=== PATIENT | male | born 1985 | race Caucasian/White ===

== ENCOUNTER 2017-04-23 23:30 | Emergency (ER) | payer MEDICARE, MEDICAID ==
[2017-04-23] MEDS ORDERED: ALPRAZolam 0.5 MG Tab PO ONE (23:53)
--- NOTE | 2017-04-23 23:54 | EDM.PDOC ---
ED HPI GENERAL MEDICAL PROBLEM - General Chief Complaint: Behavioral/Psych Stated Complaint: ANXIETY ATTACK Time Seen by Provider: 04/23/17 23:45 Source of Information: Reports: Patient History Limitations: Reports: No Limitations - History of Present Illness INITIAL COMMENTS - FREE TEXT/NARRATIVE: HISTORY AND PHYSICAL: History of present illness: [31-year-old male with a history of anxiety now complaining of insomnia. Patient states he's feeling stressed out and when he lays down in bed he can hear all the sounds around him and he can't relax so he can sleep. He denies feeling depressed or suicidal. Patient denies new stressors in his life. He has no history of depression and is never been formally diagnosed with anxiety however he is does have a history getting anxious. He is never tried any medicines for sleep no recent illness or other complaints Review of systems: As per history of present illness and below otherwise all systems reviewed and negative. Past medical history: As per history of present illness and as reviewed below otherwise noncontributory. Surgical history: As per history of present illness and as reviewed below otherwise noncontributory. Social history: No reported history of drug or alcohol abuse. Family history: As per history of present illness and as reviewed below otherwise noncontributory. Physical exam: Patient alert communicative cooperative and appropriate however he is mildly anxious especially when discussing his insomnia HEENT: Atraumatic, normocephalic, pupils reactive, negative for conjunctival pallor or scleral icterus, mucous membranes moist, throat clear, neck supple, nontender, trachea midline. Lungs: Clear to auscultation, breath sounds equal bilaterally, chest nontender. Heart: S1S2, regular, negative for clicks, rubs, or JVD. Abdomen: Soft, nondistended, nontender. Negative for masses or hepatosplenomegaly. Negative for costovertebral tenderness. Pelvis: Stable nontender. Genitourinary: Deferred. Rectal: Deferred. Extremities: Atraumatic, negative for cords or calf pain. Neurovascular unremarkable. Neuro: Awake, alert, oriented. Cranial nerves II through XII unremarkable. Cerebellum unremarkable. Motor and sensory unremarkable throughout. Exam nonfocal. Diagnostics: [] Therapeutics: [] Impression: [] Plan: [Signs and symptoms consistent with anxiety and insomnia in a patient with no evidence of psychiatric emergency unremarkable vital signs are normal exam. Discussed with patient I think he may benefit from an anxiolytic. Dose of Xanax given in ED. Patient aware to possibly try Benadryl for help with sleep and then follow-up with his primary care doctor for reevaluation and to discuss what might be optimally beneficial for his duration. Definitive disposition and diagnosis as appropriate pending reevaluation and review of above. - Related Data Allergies Allergy/AdvReac Type Severity Reaction Status Date / Time Penicillins Allergy Hives Verified 04/23/17 23:42 Home Meds: Home Meds . [No Known Home Meds] 04/23/17 [History] Past Medical History - Past Health History Medical/Surgical History: Denies Medical/Surgical History - Infectious Disease History Infectious Disease History: Reports: Chicken Pox Social & Family History - Family History Family Medical History: Noncontributory - Tobacco Use Smoking Status *Q: Never Smoker - Caffeine Use Caffeine Use: Reports: None - Recreational Drug Use Recreational Drug Use: No ED ROS GENERAL - Review of Systems Review Of Systems: See Below (History of present illness) ED EXAM, GENERAL - Physical Exam Exam: See Below (History of present illness) Course - Vital Signs Last Recorded V/S: Last Vital Signs Temp 36.5 C 04/24/17 00:22 Pulse 87 04/24/17 00:22 Resp 17 04/24/17 00:22 BP 137/86 04/24/17 00:22 Pulse Ox 95 04/24/17 00:22 - Orders/Labs/Meds Meds: Medications Discontinued Medications Generic Name Dose Route Start Last Admin Trade Name Ronq PRN Reason Stop Dose Admin Alprazolam 1 mg 04/23/17 23:53 04/24/17 00:14 Xanax PO 04/23/17 23:54 1 mg NOW ONE Administration Departure - Departure Time of Disposition: 23:51 Disposition: Home, Self-Care 01 Condition: good Clinical Impression: Anxiety, Insomnia - Discharge Information Instructions: Panic Attacks, Insomnia Referrals: PCP,None [Primary Care Provider] - Forms: ED Department Discharge Additional Instructions: You're suffering from anxiety tonight with insomnia or inability to sleep. Your physical exam is completely normal and there does not appear to be any physical problem why he should not be able to sleep. We've given you a dose of Xanax to help you relax this evening. Use [id number] Benadryl at bedtime as needed to assist with sleep and follow-up with your doctor in one to 2 days for reevaluation and to discuss what indications for further therapy in the future might be.
[2017-04-24 00:24] VITALS: BP 137/86
== END 2017-04-24 00:37 | disposition home or self-care (01) ==
LOC: MW.ED 23:30
DX: F41.9 Anxiety disorder, unspecified (principal); Z88.0 Allergy status to penicillin
CPT/HCPCS: 99283; A9270; 99282

== ENCOUNTER 2019-01-18 09:12 | Emergency (ER) | payer MEDICARE, MEDICAID ==
[2019-01-18 09:25] VITALS: BP 125/87
[2019-01-18] MEDS ORDERED: Sodium Chloride 0.9% 2.5 ML Syringe FLUSH PRN (09:42)
[2019-01-18] MEDS ORDERED: Sodium Chloride 0.9% 10 ML Syringe FLUSH PRN (09:42)
--- NOTE | 2019-01-18 09:42 | EDM.PDOC ---
ED HPI GENERAL MEDICAL PROBLEM - General Chief Complaint: Chest Pain Stated Complaint: SPOKE TO NURSE Time Seen by Provider: 01/18/19 09:20 Source of Information: Reports: Patient History Limitations: Reports: No Limitations - History of Present Illness INITIAL COMMENTS - FREE TEXT/NARRATIVE: History of present illness: []Patient was seen this morning in [place] with a positive CK-MB and an abnormal EKG and was told he needed to go to [place]. He refused transfer and admission there and signed out AMA, he then drove himself here. has had 3 days of intermittent chest pain with sweats and chills. He denies any recent illnesses, cough, shortness of breath, nausea, vomiting, dizziness, syncope last night he had another episode of unknown exact time but was sometime before 2 in the morning. Patient had his last episode occur between 2 and 3 AM that lasted 1-2 hours. He states he this was associated with sweating. He does not have a history of heart disease but states that he has this family history of heart disease. Patient currently has no chest pain. Review of systems: As per history of present illness and below otherwise all systems reviewed and negative. Past medical history: As per history of present illness and as reviewed below otherwise noncontributory. Surgical history: As per history of present illness and as reviewed below otherwise noncontributory. Social history: No reported history of drug or alcohol abuse. Family history: As per history of present illness and as reviewed below otherwise noncontributory. Physical exam: General: Well developed, well nourished in NAD HEENT: Atraumatic, normocephalic, pupils reactive, negative for conjunctival pallor or scleral icterus, mucous membranes moist, throat clear, neck supple, nontender, trachea midline. Lungs: Clear to auscultation, breath sounds equal bilaterally, chest nontender. Heart: S1S2, regular, negative for clicks, rubs, or JVD. Abdomen: NABS, Soft, nondistended, nontender. Negative for masses or hepatosplenomegaly. Negative for costovertebral tenderness. Pelvis: Stable nontender. Genitourinary: Deferred. Rectal: Deferred. Extremities: Atraumatic, negative for cords or calf pain. Neurovascular unremarkable. Neuro: Awake, alert, oriented. Cranial nerves II through XII unremarkable. Cerebellum unremarkable. Motor and sensory unremarkable throughout. Exam nonfocal. Skin:warm and dry Diagnostics: EKG, CBC, chemistry, troponin Therapeutics: none, patient remained stable without chest pain while in the ED. ED Course: positive troponin, patient is refusing admission or transfer. He is alert and oriented and realizes that is a possibility if he leaves here without further treatment. He states his will drive him directly to [facility]. He is being signed out AGAINST MEDICAL ADVICE from the ED Impression: AMI Prescriptions: NTG Plan: Follow-up with cardiology, take a baby aspirin daily, use nitroglycerin as directed for chest pain, return to ER if symptoms worsen or change. Definitive disposition and diagnosis as appropriate pending reevaluation and review of above. - Related Data Allergies Allergy/AdvReac Type Severity Reaction Status Date / Time Penicillins Allergy Hives Verified 01/18/19 09:21 Home Meds: Home Meds Nitroglycerin [Nitrostat] 0.4 mg SL ASDIRECTED PRN #1 bottle 01/18/19 [Rx] Past Medical History - Past Health History Medical/Surgical History: Denies Medical/Surgical History Hematologic History: Reports: None - Infectious Disease History Infectious Disease History: Reports: Chicken Pox Social & Family History - Family History Family Medical History: Noncontributory - Tobacco Use Smoking Status *Q: Current Every Day Smoker Years of Tobacco use: 12 Packs/Tins Daily: 0.5 - Caffeine Use Caffeine Use: Reports: Coffee, Tea - Recreational Drug Use Recreational Drug Use: No ED ROS GENERAL - Review of Systems Review Of Systems: ROS reveals no pertinent complaints other than HPI. ED EXAM, GENERAL - Physical Exam Exam: See Below (See history of present illness) Course - Vital Signs Last Recorded V/S: Last Vital Signs Temp 97.0 F 01/18/19 09:22 Pulse 90 01/18/19 09:22 Resp 17 01/18/19 09:22 BP 125/87 01/18/19 09:22 Pulse Ox 95 01/18/19 09:22 - Orders/Labs/Meds Orders: Active Orders 24 hr Category Date Time Status EKG 12 Lead [EKG Documentation Completion] [RC] STAT Care 01/18/19 09:17 Active EKG Documentation Completion [RC] STAT Care 01/18/19 09:43 Active Chest 1V Frontal [CR] Stat Exams 01/18/19 09:43 Taken Sodium Chloride 0.9% [Saline Flush] Med 01/18/19 09:42 Active 10 ml FLUSH ASDIRECTED PRN Sodium Chloride 0.9% [Saline Flush] Med 01/18/19 09:42 Active 2.5 ml FLUSH ASDIRECTED PRN Saline Lock Insert [OM.PC] Stat Oth 01/18/19 09:42 Ordered Medication Orders Sodium Chloride (Saline Flush) 10 ml FLUSH ASDIRECTED PRN PRN Reason: Keep Vein Open Sodium Chloride (Saline Flush) 2.5 ml FLUSH ASDIRECTED PRN PRN Reason: Keep Vein Open Labs: Laboratory Tests 01/18/19 01/18/19 Range/Units 09:53 09:53 WBC 9.74 (4.0-11.0) K/uL RBC 5.09 (4.50-5.90) M/uL Hgb 15.0 (13.0-17.0) g/dL Hct 42.6 (38.0-50.0) % MCV 83.7 (80.0-98.0) fL MCH 29.5 (27.0-32.0) pg MCHC 35.2 (31.0-37.0) g/dL RDW Std Deviation 42.2 (28.0-62.0) fl RDW Coeff of Anand 14 (11.0-15.0) % Plt Count 236 (150-400) K/uL MPV 9.70 (7.40-12.00) fL Neut % (Auto) 75.2 (48.0-80.0) % Lymph % (Auto) 16.0 (16.0-40.0) % [place] % (Auto) 8.0 (0.0-15.0) % Eos % (Auto) 0.6 (0.0-7.0) % Baso % (Auto) 0.2 (0.0-1.5) % Neut # (Auto) 7.3 H (1.4-5.7) K/uL Lymph # (Auto) 1.6 (0.6-2.4) K/uL [place] # (Auto) 0.8 (0.0-0.8) K/uL Eos # (Auto) 0.1 (0.0-0.7) K/uL Baso # (Auto) 0.0 (0.0-0.1) K/uL Nucleated RBC % 0.0 /100WBC Nucleated RBCs # 0 K/uL Sodium 143 (136-148) mmol/L Potassium 3.4 L (3.5-5.1) mmol/L Chloride 106 (98-107) mmol/L Carbon Dioxide 24.4 (21.0-32.0) mmol/L BUN 11 (7.0-18.0) mg/dL Creatinine 1.1 (0.8-1.3) mg/dL Est Cr Clr Drug Dosing TNP Estimated GFR (MDRD) > 60.0 ml/min Glucose 93 (74-106) mg/dL Calcium 9.0 (8.5-10.1) mg/dL Total Bilirubin 2.5 H (0.2-1.0) mg/dL AST 37 (15-37) IU/L ALT 59 (14-63) IU/L Alkaline Phosphatase 64 (46-116) U/L Troponin I 0.107 H* (0.000-0.056) ng/mL Total Protein 7.5 (6.4-8.2) g/dL Albumin 3.7 (3.4-5.0) g/dL Globulin 3.8 (2.6-4.0) g/dL Albumin/Globulin Ratio 1.0 (0.9-1.6) Meds: Medications Generic Name Dose Route Start Last Admin Trade Name Freq PRN Reason Stop Dose Admin Sodium Chloride 10 ml 01/18/19 09:42 Saline Flush FLUSH ASDIRECTED PRN Keep Vein Open Sodium Chloride 2.5 ml 01/18/19 09:42 Saline Flush FLUSH ASDIRECTED PRN Keep Vein Open Departure - Departure Time of Disposition: 10:42 Disposition: Against Medical Advice 07 Condition: Good Clinical Impression: Acute RI Qualifiers: Myocardial infarction type: unspecified Involved coronary artery: unspecified coronary artery Qualified Code(s): I21.9 - Acute myocardial infarction, unspecified Prescriptions: Nitroglycerin [Nitrostat] 0.4 mg SL ASDIRECTED PRN #1 bottle PRN Reason: Chest Pain Referrals: PCP,Unknown [Primary Care Provider] - Forms: ED Department Discharge Additional Instructions: The following information is given to patients seen in the emergency department who are being discharged to home. This information is to outline your options for follow-up care. We provide all patients seen in our emergency department with a follow-up referral. The need for follow-up, as well as the timing and circumstances, are variable depending upon the specifics of your emergency department visit. If you don't have a primary care physician on staff, we will provide you with a referral. We always advise you to contact your personal physician following an emergency department visit to inform them of the circumstance of the visit and for follow-up with them and/or the need for any referrals to a consulting specialist. The emergency department will also refer you to a specialist when appropriate. This referral assures that you have the opportunity for follow-up care with a specialist. All of these measure are taken in an effort to provide you with optimal care, which includes your follow-up. Under all circumstances we always encourage you to contact your private physician who remains a resource for coordinating your care. When calling for follow-up care, please make the office aware that this follow-up is from your recent emergency room visit. If for any reason you are refused follow-up, please contact the [facility] Emergency Department at and asked to speak to the emergency department charge nurse. Take meds as directed, follow up with your primary care physician, return to ER if symptoms worsen or change. Follow-up with cardiology or primary care EMILY [facility] Dr. Sanchez. [place] [address] [place] [phone] [facility] [address] [place] [id number] - My Orders Last 24 Hours: My Active Orders 01/18/19 09:17 EKG 12 Lead [EKG Documentation Completion] [RC] STAT 01/18/19 09:42 Sodium Chloride 0.9% [Saline Flush] 10 ml FLUSH ASDIRECTED PRN Sodium Chloride 0.9% [Saline Flush] 2.5 ml FLUSH ASDIRECTED PRN Saline Lock Insert [OM.PC] Stat 01/18/19 09:43 EKG Documentation Completion [RC] STAT Chest 1V Frontal [CR] Stat - Assessment/Plan Last 24 Hours: My Active Orders 01/18/19 09:17 EKG 12 Lead [EKG Documentation Completion] [RC] STAT 01/18/19 09:42 Sodium Chloride 0.9% [Saline Flush] 10 ml FLUSH ASDIRECTED PRN Sodium Chloride 0.9% [Saline Flush] 2.5 ml FLUSH ASDIRECTED PRN Saline Lock Insert [OM.PC] Stat 01/18/19 09:43 EKG Documentation Completion [RC] STAT Chest 1V Frontal [CR] Stat
[2019-01-18 10:29] LABS: CHLORIDE,CL 106 mmol/L (98-107); SODIUM,NA 143 mmol/L (136-148)
--- NOTE | 2019-01-18 11:22 | CR ---
INDICATION: Pain and shortness breath. TECHNIQUE: AP portable chest x-ray. FINDINGS: Heart size normal. Probable subtle old right rib fracture. No focal infiltrate or consolidation either lung. Small nodular density in the left mid chest may be a granuloma or could be a small area of sclerosis within a rib. Chest otherwise unremarkable without acute disease. Dictated by Azar Onofre MD @ Jan 18 2019 11:20AM Signed by Dr. Azar Onofre @ Jan 18 2019 11:22AM
== END 2019-01-18 10:51 | disposition left against medical advice (07) ==
LOC: MW.ED 09:12
DX: I21.9 Acute myocardial infarction, unspecified (principal); F17.210 Nicotine dependence, cigarettes, uncomplicated; Z88.0 Allergy status to penicillin
CPT/HCPCS: 36415; 71045; 71045-26; 80053; 84484; 85025; 93005; 99284; 99285-25